=== PATIENT | male | born 1965 | race Two or more races ===

== ENCOUNTER 2019-01-03 20:24 | Emergency (ER) | payer SELFPAY ==
[~2019-01-03] VITALS: Ht 193 cm; Wt 99.8 kg
[2019-01-03] MEDS ORDERED: HYDROcodone/APAP 5/325MG 1 TAB TABLET PO ONE ×2 (21:00→23:45)
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
[2019-01-03 22:45] VITALS: BP 143/76
[2019-01-03] MEDS ORDERED: HYDR-3164 PO (23:06)
[2019-01-03] MEDS ORDERED: BACITRACIN TOPICAL OINT PACKET. TP ONE (23:28)
[2019-01-03] MEDS ORDERED: NEOMY/BACITR/POLYMYXIN OINT PACKET. TP ONE (23:30)
== END 2019-01-04 00:05 | disposition home or self-care (01) ==
LOC: ER 20:24
DX: S92.002A Unspecified fracture of left calcaneus, initial encounter for closed fracture (principal); V09.9XXA Pedestrian injured in unspecified transport accident, initial encounter; Y93.01 Activity, walking, marching and hiking; Y92.410 Unspecified street and highway as the place of occurrence of the external cause; Y99.8 Other external cause status
CPT/HCPCS: 29515; 73590; 73610; 73630; 99285